=== PATIENT | male | born 1975 | race Caucasian/White ===

== ENCOUNTER 2017-06-20 09:38 | Emergency (ER) | payer SELFPAY ==
[~2017-06-20] VITALS: Ht 177.8 cm; Wt 81.0 kg
[~2017-06-20 09:38] MED LIST: LIDOCAINE HCL VIS2 % PO; ZOFRAN4 MG/TAB PO
[2017-06-20 11:17] LABS: HEMATOCRIT 47.8 % (39.0-50.0); HEMOGLOBIN 17.2 g/dl (14.0-18.0); IMMATURE GRANULOCYTES 0.3 % (0.0-1.0); MEAN CELL VOLUME 91.4 fL CALC (80.0-100.0); MEAN CORPUSCULAR HGB 32.9 pG CALC (26.0-32.0); NEUT# 4.51 thou/uL (1.82-7.42); RED BLOOD COUNT 5.23 mill/uL (4.70-6.10)
[2017-06-20 11:22] LABS: ALBUMIN 5.8 g/dL (3.2-5.0); ALKALINE PHOSPHATASE 54 u/l (38-126); AMYLASE 38 u/l (30-110); ANION GAP 21 (6-22 (CALC)); BILIRUBIN, TOTAL 1.5 mg/dL (0.0-1.4); BUN 28 mg/dL (9-20); BUN/CREATININE RATIO 26 (12-20 (CALC)); CARBON DIOXIDE 23 mmol/l (22-30); CHLORIDE 108 mmol/l (95-108); CREATININE 1.1 mg/dL (0.7-1.3); GFR > 60 ML/MIN (>=60 (CALC)); GFR FOR AFR.AMER. > 60 ML/MIN (>=60 (CALC)); GLUCOSE 101 mg/dL (75-110); LIPASE 49 u/l (23-300); POTASSIUM 5.1 mmol/l (3.5-5.1); SGOT/AST 60 u/l (17-59); SGPT/ALT 101 u/l (21-72); SODIUM 147 mmol/l (137-146); TOTAL PROTEIN 9.2 g/dL (6.3-8.2)
[2017-06-20 15:07] VITALS: BP 151/96
== END 2017-06-20 15:17 | disposition short-term general hospital (02) | DRG 392 ==
LOC: ED 09:38
PROVIDERS: Emergency Medicine
DX: K22.2 Esophageal obstruction (principal); T18.128A Food in esophagus causing other injury, initial encounter; F17.210 Nicotine dependence, cigarettes, uncomplicated; R11.2 Nausea with vomiting, unspecified; R10.13 Epigastric pain; X58.XXXA Exposure to other specified factors, initial encounter; Y93.89 Activity, other specified; Y92.009 Unspecified place in unspecified non-institutional (private) residence as the place of occurrence of the external cause; J02.0 Streptococcal pharyngitis